=== PATIENT | male | born 1960 | race Caucasian/White ===

== ENCOUNTER 2017-07-27 12:22 | Observation (INO) | payer SELFPAY ==
[2017-07-27] VITALS (7 sets, daily range): BP systolic 100–142; BP diastolic 70–87; PULSE 59–92; RESP 16–20; TEMP 97–97.9; O2SAT 97–100
[~2017-07-27] VITALS: Ht 177.8 cm; Wt 59.0 kg
[2017-07-27] MEDS ORDERED: SODIUM CHLORIDE 0.9% FLUSH 10 ML FLUSH IVF PRN (13:00)
[2017-07-27] MEDS ORDERED: ASPIRIN 81 MG CHEW TAB PO ONE (13:00)
--- NOTE | 2017-07-27 13:04 | PD ---
HPI Chief Complaint: Respiratory Symptoms Time Seen by Provider: 12:43 Travel History International Travel<30 days: No Contact w/Intl Traveler<30days: No Traveled to known affect area: No History of Present Illness HPI patient's 57-year-old male presents emergency department for 2 day history of tightness in the center of his chest with occasional radiation to his right arm , it was some dizziness and some shortness of breath. Patient states he has a history of a heart attack in the distant past, strong family history of heart disease in knees and heavy smoker. No history of high blood pressure high cholesterol but he has not had a checkup in some years. No fevers no cough no congestion. He states his symptoms are moderate, exacerbated with exercise, associated signs symptoms as above, context as above. PFSH Past Medical History Medical History: Denies Significant Hx Diminished Hearing: No Tetanus Vaccination: Unknown Influenza Vaccination: No ?: Not Past Surgical History Other Surgery: Yes (rib removed) Social History Alcohol Use: Yes (few beers) Tobacco Use: Yes (1 ppd) Substance Use: No Allergies-Medications (Allergen,Severity, Reaction): Coded Allergies: erythromycin base (Verified Allergy, Intermediate, UNKNOWN, 07/27/17) Reported Meds & Prescriptions Reported Meds & Active Scripts Active No Active Prescriptions or Reported Medications Review of Systems Except as stated in HPI: all other systems reviewed are Neg Physical Exam Narrative GENERAL: Well-developed well-nourished in no obvious distress, thin build, smells of cigarette smoke SKIN: Focused skin assessment warm/dry. HEAD: Atraumatic. Normocephalic. EYES: Pupils equal and round. No scleral icterus. No injection or drainage. ENT: No nasal bleeding or discharge. Mucous membranes pink and moist. NECK: Trachea midline. No JVD. CARDIOVASCULAR: Regular rate and rhythm. No murmur appreciated. 2+ but equal pulses in all 4 extremities. No Reproducible chest pain RESPIRATORY: No accessory muscle use. Clear to auscultation. Breath sounds equal bilaterally. GASTROINTESTINAL: Abdomen soft, non-tender, nondistended. Hepatic and splenic margins not palpable. MUSCULOSKELETAL: No obvious deformities. No clubbing. No cyanosis. No edema. NEUROLOGICAL: Awake and alert. No obvious cranial nerve deficits. Motor grossly within normal limits. Normal speech. PSYCHIATRIC: Appropriate mood and affect; insight and judgment normal. Data Data Last Documented VS Vital Signs Date Time Temp Pulse Resp B/P (MAP) Pulse Ox O2 Delivery O2 Flow Rate FiO2 07/27/17 13:21 103/79 (87) 07/27/17 13:17 92 16 98 Room Air 07/27/17 12:24 97.9 Orders Orders Electrocardiogram (07/27/17 12:53) Complete Blood Count With Diff (07/27/17 12:53) Comprehensive Metabolic Panel (07/27/17 12:53) D-Dimer (07/27/17 12:53) Magnesium (Mg) (07/27/17 12:53) Prothrombin Time / Inr (Pt) (07/27/17 12:53) Act Partial Throm Time (Ptt) (07/27/17 12:53) Troponin I (07/27/17 12:53) Chest, Single Ap (07/27/17 12:53) Ecg Monitoring (07/27/17 12:53) Iv Access Insert/Monitor (07/27/17 12:53) Oximetry (07/27/17 12:53) Oxygen Administration (07/27/17 12:53) Aspirin Chew (Aspirin Chew) (07/27/17 13:00) Sodium Chloride 0.9% Flush (Ns Flush) (07/27/17 13:00) Nitroglycerin Sl (Nitrostat Sl) (07/27/17 13:00) Admit Order (Ed Use Only) (07/27/17 ) Labs Laboratory Tests Test 07/27/17 13:00 White Blood Count 5.9 TH/MM3 Red Blood Count 5.19 MIL/MM3 Hemoglobin 15.4 GM/DL Hematocrit 47.4 % Mean Corpuscular Volume 91.3 FL Mean Corpuscular Hemoglobin 29.8 PG Mean Corpuscular Hemoglobin Concent 32.6 % Red Cell Distribution Width 12.7 % Platelet Count 224 TH/MM3 Mean Platelet Volume 7.8 FL Neutrophils (%) (Auto) 56.9 % Lymphocytes (%) (Auto) 24.5 % Monocytes (%) (Auto) 9.7 % Eosinophils (%) (Auto) 4.5 % Basophils (%) (Auto) 4.4 % Neutrophils # (Auto) 3.3 TH/MM3 Lymphocytes # (Auto) 1.4 TH/MM3 Monocytes # (Auto) 0.6 TH/MM3 Eosinophils # (Auto) 0.3 TH/MM3 Basophils # (Auto) 0.3 TH/MM3 CBC Comment DIFF FINAL Differential Comment Prothrombin Time 9.5 SEC Prothromb Time International Ratio 0.9 RATIO Activated Partial Thromboplast Time 25.0 SEC D-Dimer Quantitative (PE/DVT) 0.42 MG/L FEU Blood Urea Nitrogen 11 MG/DL Creatinine 0.92 MG/DL Random Glucose 89 MG/DL Total Protein 7.7 GM/DL Albumin 3.7 GM/DL Calcium Level 8.9 MG/DL Magnesium Level 2.2 MG/DL Alkaline Phosphatase 77 U/L Aspartate Amino Transf (AST/SGOT) 19 U/L Alanine Aminotransferase (ALT/SGPT) 19 U/L Total Bilirubin 0.5 MG/DL Sodium Level 139 MEQ/L Potassium Level 3.9 MEQ/L Chloride Level 105 MEQ/L Carbon Dioxide Level 26.6 MEQ/L Anion Gap 7 MEQ/L Estimat Glomerular Filtration Rate 85 ML/MIN Troponin I LESS THAN 0.02 NG/ML MDM Medical Decision Making Medical Screen Exam Complete: Yes Emergency Medical Condition: Yes Differential Diagnosis ACS, AMI, pneumonia, PE. Narrative Course Patient roomed emergency department, d-dimer is below the institutional cut off , coupled with a low index of suspicion this makes pulmonary embolism highly unlikely. Troponin negative, EKG negative. Discussed with the patient need for further workup in the future, he has no primary care physician was to follow -up, therefore recommended to the patient admission for observation for troponin trending at a minimum and further workup per chest pain center. Diagnosis Primary Impression: Chest pain Admitting Information Admitting Physician Requests: Observation Scripts No Active Prescriptions or Reported Meds Condition: Stable Nolan Andrade MD Jul 27, 2017 13:04
[2017-07-27] MEDS: NITROGLYCERIN 0.4 MG SL 25 TABS/BTL SL SCH ×2 (13:05→13:09)
[2017-07-27 13:08] LABS: AUTOMATED NEUTROPHIL # 3.3 TH/MM3 (1.8-7.7); BASOPHIL # 0.3 TH/MM3 (0-0.2); BASOPHIL % 4.4 % (0.0-2.0); EOSINOPHIL # 0.3 TH/MM3 (0-0.4); EOSINOPHIL % 4.5 % (0.0-4.0); HEMATOCRIT 47.4 % (39.0-51.0); HEMOGLOBIN 15.4 GM/DL (13.0-17.0); LYMPH % 24.5 % (9.0-44.0); LYMPHOCYTE # 1.4 TH/MM3 (1.0-4.8); MEAN CELL VOLUME 91.3 FL (80.0-100.0); MEAN CORPUSCULAR HEMOGLOBIN 29.8 PG (27.0-34.0); MEAN CORPUSCULAR HGB CONC 32.6 % (32.0-36.0); MEAN PLATELET VOLUME 7.8 FL (7.0-11.0); MONO % 9.7 % (0.0-8.0); MONOCYTE # 0.6 TH/MM3 (0-0.9); NEUT % 56.9 % (16.0-70.0); PLATELET COUNT 224 TH/MM3 (150-450); RED BLOOD COUNT 5.19 MIL/MM3 (4.50-5.90); RED CELL DISTRIBUTION WIDTH 12.7 % (11.6-17.2); WHITE BLOOD COUNT 5.9 TH/MM3 (4.0-11.0)
[2017-07-27 13:19] LABS: CHLORIDE 105 MEQ/L (98-107); SODIUM (NA) 139 MEQ/L (136-145)
--- NOTE | 2017-07-27 13:19 | RADRPT ---
EXAM DATE/TIME: 07/27/2017 13:05 [facility] COMPARISON: No previous studies available for comparison. INDICATIONS : Chest pain, short of breath, cough MEDICAL HISTORY : None. SURGICAL HISTORY : None. ENCOUNTER: Initial ACUITY: 4 - 6 days PAIN SCORE: 5/10 LOCATION: Bilateral chest FINDINGS: A single view of the chest demonstrates the lungs to be symmetrically aerated without evidence of mas s, infiltrate or effusion. The cardiomediastinal contours are unremarkable. Osseous structures are intact. CONCLUSION: No acute disease. There is no evidence of pneumonia. Pilo Barone MD on July 27, 2017 at 13:15 Board Certified Radiologist. This report was verified electronically.
[2017-07-27 13:22] LABS: CALCIUM 8.9 MG/DL (8.5-10.1)
[2017-07-27 13:23] LABS: ALBUMIN 3.7 GM/DL (3.4-5.0); BICARBONATE 26.6 MEQ/L (21.0-32.0); BLOOD UREA NITROGEN 11 MG/DL (7-18); GLUCOSE,RANDOM 89 MG/DL (74-106); MAGNESIUM 2.2 MG/DL (1.5-2.5)
[2017-07-27 13:26] LABS: ALT (GPT) 19 U/L (12-78); AST (GOT) 19 U/L (15-37); CREATININE 0.92 MG/DL (0.60-1.30); GLOMERULAR FILTRATION RATE 85 ML/MIN (>89)
[2017-07-27 13:28] LABS: INTERNATIONAL NORMALIZED RATIO 0.9 RATIO; PROTHROMBIN TIME - PATIENT 9.5 SEC (9.8-11.6); TOTAL BILIRUBIN ADULT 0.5 MG/DL (0.2-1.0); TOTAL PROTEIN 7.7 GM/DL (6.4-8.2)
[2017-07-27 13:29] LABS: ALKALINE PHOSPHATASE 77 U/L (45-117)
[2017-07-27 13:31] LABS: TROPONIN I LESS THAN 0.02 NG/ML (0.02-0.05)
[2017-07-27 13:35] LABS: D-DIMER 0.42 MG/L FEU (0.00-0.50)
[2017-07-27] MEDS ORDERED: ONDANSETRON HCL 4 MG/2 ML VIAL IV PUSH PRN (14:00)
[2017-07-27] MEDS ORDERED: SODIUM CHLORIDE 0.9% FLUSH 10 ML FLUSH IV FLUSH PRN (14:00)
[2017-07-27] MEDS ORDERED: ACETAMINOPHEN 500 MG CPLT PO PRN (14:00)
--- NOTE | 2017-07-27 14:46 | HHI.HP ---
[facility] No Primary Care Physician Admission Diagnosis Chest Pain Diagnoses: (1) Chest pain Chief Complaint: Chest pain Travel History International Travel<30 Days: No Contact w/Intl Traveler <30 Da: No Traveled to Known Affected Are: No History of Present Illness This is a pleasant 57-year-old male patient with no known medical history who came into the ED complaining of chest pain. Patient states that he has been having intermittent chest discomfort for the past two days, Diflucan is midsternal chest, characterized as tight and squeezing, denies any radiation of pain, admits to associated shortness of breath, denies any nausea or vomiting or diaphoresis, rates the pain a nine out of ten at its worst on pain scale. Admits that activity worsens pain. The rest does relieve the pain. Denies ever having this kind of chest pain before although he does state that he underwent a cardiac stress test two years ago in [place] which was reportedly negative. Does not follow with his PCP. Denies any recent illness including fever, chills, shortness of breath, cough, abdominal pain, nausea, vomiting or diarrhea or dysuria. Recent states is a pretty active male, his work is very strenuous, but denies any recent trauma or musculoskeletal complaints Review of Systems Constitutional: DENIES: Fever, Chills Eyes: DENIES: Diplopia Ears, nose, mouth, throat: DENIES: Vertigo Respiratory: DENIES: Cough, Shortness of breath Cardiovascular: COMPLAINS OF: Chest pain Gastrointestinal: DENIES: Abdominal pain, Black stools, Bloody stools, Constipation, Diarrhea, Vomiting Musculoskeletal: DENIES: Joint pain Hematologic/lymphatic: DENIES: Bruising Psychiatric: DENIES: Anxiety Except as stated in HPI: all other systems reviewed are Neg Past Family Social History Past Medical History No known medical problems. Past Surgical History Rib removal. Reported Medications Active No Active Prescriptions or Reported Medications Allergies: Coded Allergies: erythromycin base (Verified Allergy, Intermediate, UNKNOWN, 07/27/17) Active Ordered Medications Current Medications Medications (Trade) Dose Ordered Sig/Edwin Route Start Time Stop Time Status Last Admin (NS Flush) 2 ml UNSCH PRN IV FLUSH 07/27/17 14:00 (NS Flush) 2 ml BID IV FLUSH 07/27/17 21:00 (Tylenol) 500 mg Q4H PRN PO 07/27/17 14:00 (Zofran Inj) 4 mg Q6H PRN IV PUSH 07/27/17 14:00 Family History Father has significant cardiovascular disease with cardiac stents. Maternal medical history significant for stroke. Social History Admits to smoking one pack per day cigarettes since the age of [age]. Does admit to drinking three beers per day. Denies any illicit drug use. Physical Exam Vital Signs Vital Signs Date Time Temp Pulse Resp B/P (MAP) Pulse Ox O2 Delivery O2 Flow Rate FiO2 07/27/17 14:39 63 16 105/80 (88) 97 Room Air 07/27/17 13:21 103/79 (87) 07/27/17 13:17 92 16 102/76 (85) 98 Room Air 07/27/17 13:00 100 Room Air 07/27/17 13:00 100 Room Air 07/27/17 12:38 84 100 Room Air 07/27/17 12:24 97.9 81 18 142/85 (104) 100 Physical Exam GENERAL: This is a well-nourished, well-developed patient, in no apparent distress. SKIN: No rashes, ecchymoses or lesions. Cool and dry. HEAD: Atraumatic. Normocephalic. EYES: Pupils equal round and reactive. Extraocular motions intact. No scleral icterus. No injection or drainage. ENT: Nose without bleeding, purulent drainage or septal hematoma. Throat without erythema, tonsillar hypertrophy or exudate. Uvula midline. Airway patent. NECK: Trachea midline. No JVD or lymphadenopathy. Supple, nontender, no meningeal signs. CARDIOVASCULAR: Regular rate and rhythm without murmurs, gallops, or rubs. Some reproducible chest pain to mid sternal chest to palpation RESPIRATORY: Clear to auscultation. Breath sounds equal bilaterally. No wheezes , rales, or rhonchi. GASTROINTESTINAL: Abdomen soft, non-tender, nondistendedNo guarding. MUSCULOSKELETAL: Extremities without clubbing, cyanosis, or edema. No joint tenderness, effusion, or edema noted. NEUROLOGICAL: Awake and alert. Cranial nerves II through XII intact. Motor and sensory grossly within normal limits. Five out of 5 muscle strength in all muscle groups. Normal speech. Laboratory Laboratory Tests Test 07/27/17 13:00 White Blood Count 5.9 Red Blood Count 5.19 Hemoglobin 15.4 Hematocrit 47.4 Mean Corpuscular Volume 91.3 Mean Corpuscular Hemoglobin 29.8 Mean Corpuscular Hemoglobin Concent 32.6 Red Cell Distribution Width 12.7 Platelet Count 224 Mean Platelet Volume 7.8 Neutrophils (%) (Auto) 56.9 Lymphocytes (%) (Auto) 24.5 Monocytes (%) (Auto) 9.7 Eosinophils (%) (Auto) 4.5 Basophils (%) (Auto) 4.4 Neutrophils # (Auto) 3.3 Lymphocytes # (Auto) 1.4 Monocytes # (Auto) 0.6 Eosinophils # (Auto) 0.3 Basophils # (Auto) 0.3 CBC Comment DIFF FINAL Differential Comment Prothrombin Time 9.5 Prothromb Time International Ratio 0.9 Activated Partial Thromboplast Time 25.0 D-Dimer Quantitative (PE/DVT) 0.42 Blood Urea Nitrogen 11 Creatinine 0.92 Random Glucose 89 Total Protein 7.7 Albumin 3.7 Calcium Level 8.9 Magnesium Level 2.2 Alkaline Phosphatase 77 Aspartate Amino Transf (AST/SGOT) 19 Alanine Aminotransferase (ALT/SGPT) 19 Total Bilirubin 0.5 Sodium Level 139 Potassium Level 3.9 Chloride Level 105 Carbon Dioxide Level 26.6 Anion Gap 7 Estimat Glomerular Filtration Rate 85 Troponin I LESS THAN 0.02 Result Diagram: 07/27/17 1300 07/27/17 1300 Imaging Last Impressions Chest X-Ray 07/27/17 1253 Signed Impressions: Service Date/Time: Thursday, July 27, 2017 13:05 - CONCLUSION: No acute disease. There is no evidence of pneumonia. Pilo Barone MD Septic Shock Reassessment Septic shock perfusion: reassessment completed Caprini VTE Risk Assessment Caprini VTE Risk Assessment: No/Low Risk (score <= 1) Caprini Risk Assessment Model Point Value = 1 Point Value = 2 Point Value = 3 Point Value = 5 Age 41-60 Minor surgery BMI > 25 kg/m2 Swollen legs Varicose veins or History of unexplained or recurrent spontaneous Oral contraceptives or hormone replacement Sepsis (< 1 month) Serious lung disease, including pneumonia (< 1 month) Abnormal pulmonary function Acute myocardial infarction Congestive heart failure (< 1 month) History of inflammatory bowel disease Medical patient at bed rest Age 61-74 Arthroscopic surgery Major open surgery (> 45 min) Laparoscopic surgery (> 45 min) Malignancy Confined to bed (> 72 hours) Immobilizing plaster cast Central venous access Age >= 75 History of VTE Family history of VTE Factor V Leiden Prothrombin [id number] Lupus anticoagulant Anticardiolipin antibodies Elevated serum homocysteine Heparin-induced thrombocytopenia Other congenital or acquired thrombophilia Stroke (< 1 month) Elective arthroplasty Hip, pelvis, or leg fracture Acute spinal cord injury (< 1 month) Prophylaxis Regimen Total Risk Factor Score Risk Level Prophylaxis Regimen 0-1 Low Early ambulation 2 Moderate Order ONE of the following: *Sequential Compression Device (SCD) *Heparin 5000 units SQ BID 3-4 Higher Order ONE of the following medications: *Heparin 5000 units SQ TID *Enoxaparin/Lovenox 40 mg SQ daily (WT < 150 kg, CrCl > 30 mL/min) *Enoxaparin/Lovenox 30 mg SQ daily (WT < 150 kg, CrCl > 10-29 mL/min) *Enoxaparin/Lovenox 30 mg SQ BID (WT < 150 kg, CrCl > 30 mL/min) AND/OR *Sequential Compression Device (SCD) 5 or more Highest Order ONE of the following medications: *Heparin 5000 units SQ TID (Preferred with Epidurals) *Enoxaparin/Lovenox 40 mg SQ daily (WT < 150 kg, CrCl > 30 mL/min) *Enoxaparin/Lovenox 30 mg SQ daily (WT < 150 kg, CrCl > 10-29 mL/min) *Enoxaparin/Lovenox 30 mg SQ BID (WT < 150 kg, CrCl > 30 mL/min) AND *Sequential Compression Device (SCD) Assessment and Plan Assessment and Plan Patient has been admitted to the chest pain center for observation. Denies any previous cardiovascular disease. Serial EKGs and serial troponins have been ordered for ruling out purposes. Initial troponin is negative. Will follow trend. EKG reviewed showing sinus rhythm, controlled heart rate, no ST changes. Nitroglycerin given in ED which improved the pain. Placed on daily aspirin. CBC and BMP reviewed, essentially unremarkable. Chest x-ray reviewed showing no acute cardiopulmonary abnormality. Supplemental O2 as needed. Supportive care. At this time patient states that the pain has improved. Continue cardiac telemetry, monitor for any arrhythmias. Will allow patient to eat tonight, will place on nothing by mouth after midnight for possible stress test in a.m. Paula Finnegan Jul 27, 2017 14:46
[2017-07-27 16:33] LABS: TROPONIN I LESS THAN 0.02 NG/ML (0.02-0.05)
[2017-07-27 19:22] LABS: TROPONIN I LESS THAN 0.02 NG/ML (0.02-0.05)
[2017-07-27] MEDS: SODIUM CHLORIDE 0.9% FLUSH 10 ML FLUSH IV FLUSH SCH (20:13)
[2017-07-28] VITALS: BP 120/68; PULSE 58; RESP 20; TEMP 96.3; O2SAT 99
[2017-07-28 03:11] LABS: AUTOMATED NEUTROPHIL # 5.2 TH/MM3 (1.8-7.7); BASOPHIL % 0.6 % (0.0-2.0); EOSINOPHIL # 0.4 TH/MM3 (0-0.4); EOSINOPHIL % 5.2 % (0.0-4.0); HEMATOCRIT 46.1 % (39.0-51.0); HEMOGLOBIN 15.3 GM/DL (13.0-17.0); LYMPH % 16.9 % (9.0-44.0); LYMPHOCYTE # 1.2 TH/MM3 (1.0-4.8); MEAN CELL VOLUME 92.3 FL (80.0-100.0); MEAN CORPUSCULAR HEMOGLOBIN 30.5 PG (27.0-34.0); MEAN CORPUSCULAR HGB CONC 33.1 % (32.0-36.0); MEAN PLATELET VOLUME 7.5 FL (7.0-11.0); MONO % 5.5 % (0.0-8.0); MONOCYTE # 0.4 TH/MM3 (0-0.9); NEUT % 71.8 % (16.0-70.0); PLATELET COUNT 193 TH/MM3 (150-450); WHITE BLOOD COUNT 7.2 TH/MM3 (4.0-11.0)
[2017-07-28 03:29] LABS: CHLORIDE 106 MEQ/L (98-107); SODIUM (NA) 138 MEQ/L (136-145)
[2017-07-28 03:32] LABS: BICARBONATE 25.6 MEQ/L (21.0-32.0); CALCIUM 8.6 MG/DL (8.5-10.1)
[2017-07-28 03:33] LABS: BLOOD UREA NITROGEN 11 MG/DL (7-18); GLUCOSE,RANDOM 89 MG/DL (74-106); MAGNESIUM 1.9 MG/DL (1.5-2.5)
[2017-07-28 03:36] LABS: CREATININE 0.82 MG/DL (0.60-1.30); GLOMERULAR FILTRATION RATE 97 ML/MIN (>89)
[2017-07-28 03:41] LABS: TROPONIN I LESS THAN 0.02 NG/ML (0.02-0.05)
[2017-07-28 05:01] VITALS: BP 108/64; PULSE 66; RESP 18; TEMP 97.2; O2SAT 96
[2017-07-28 08:00] VITALS: BP 109/70; PULSE 77; RESP 18; TEMP 97.8; O2SAT 98
[2017-07-28] MEDS: SODIUM CHLORIDE 0.9% FLUSH 10 ML FLUSH IV FLUSH SCH (08:23)
[2017-07-28] MEDS ORDERED: ASPIRIN 81 MG CHEW TAB CHEW SCH (09:00)
--- NOTE | 2017-07-28 09:36 | HHI.PR ---
Subjective Remarks Follow-up chest pain. Patient seen and examined, lying in bed comfortably. Denies any further chest pain overnight. States that he slept well. States some anxiety regarding stress test planned for this morning, patient reassured. Afebrile and vital signs stable overnight. Objective Vitals Vital Signs Date Time Temp Pulse Resp B/P (MAP) Pulse Ox O2 Delivery O2 Flow Rate FiO2 07/28/17 05:01 97.2 66 18 108/64 (79) 96 07/28/17 00:00 96.3 58 20 120/68 (85) 99 07/27/17 20:00 97 21 07/27/17 20:00 59 07/27/17 20:00 97.0 59 20 100/70 (80) 97 07/27/17 18:00 97.6 62 18 120/87 (98) 97 07/27/17 15:04 07/27/17 14:39 63 16 105/80 (88) 97 Room Air 07/27/17 13:21 103/79 (87) 07/27/17 13:17 92 16 102/76 (85) 98 Room Air 07/27/17 13:00 100 Room Air 07/27/17 13:00 100 Room Air 07/27/17 12:38 84 100 Room Air 07/27/17 12:24 97.9 81 18 142/85 (104) 100 I/O 07/27/17 07/27/17 07/27/17 07/28/17 07/28/17 07/28/17 07:00 15:00 23:00 07:00 15:00 23:00 Intake Total 240 ml Balance 240 ml Intake Oral 240 ml # Voids 3 # Bowel Movements 0 Result Diagram: 07/28/17 0300 07/28/17 0300 Imaging Last Impressions Chest X-Ray 07/27/17 1253 Signed Impressions: Service Date/Time: Thursday, July 27, 2017 13:05 - CONCLUSION: No acute disease. There is no evidence of pneumonia. Pilo Barone MD Objective Remarks GENERAL: Well-nourished, well-developed patient in NAD. SKIN: Warm and dry. No rash. HEAD: Normocephalic. Atraumatic. EYES: Pupils equal and round. No scleral icterus. No injection or drainage. ENT: No nasal bleeding or discharge. Mucous membranes pink and moist. NECK: Supple. Trachea midline. CARDIOVASCULAR: Regular rate and rhythm. S1, S2 noted. No murmur appreciated. Some reproducible chest pain this morning to palpation midsternal chest. RESPIRATORY: No accessory muscle use. Clear to auscultation. Breath sounds equal bilaterally. GASTROINTESTINAL: Abdomen soft, non-tender, nondistended. Normoactive bowel sounds x4. MUSCULOSKELETAL: No obvious deformities. Extremities without clubbing, cyanosis , or edema. NEUROLOGICAL: Awake and alert. No obvious cranial nerve deficits. Motor grossly within normal limits. 5/5 muscle strength in bilateral upper and lower extremities. Normal speech. PSYCHIATRIC: Appropriate mood and affect; insight and judgment normal. A/P Problem List: (1) Chest pain ICD Code: R07.9 - Chest pain, unspecified Status: Acute Plan: Patient has been admitted to the chest pain center for observation. Denies any previous cardiovascular disease. Serial EKGs and serial troponins have been ordered for ruling out purposes. Serial troponins negative. EKG reviewed showing sinus rhythm, controlled heart rate, no ST changes. Nitroglycerin given in ED which improved the pain. Placed on daily aspirin. CBC and BMP reviewed, essentially unremarkable. Chest x-ray reviewed showing no acute cardiopulmonary abnormality. Supplemental O2 as needed. Supportive care. Comfortable on room air Continue cardiac telemetry, monitor for any arrhythmias. Patient will undergo a cardiac treadmill stress test, further hospitalization will depend on results. Patient is stable at this time and agreeable to the plan. Assessment and Plan Patient underwent cardiac DTT, images sent over to lead esthetician on-call with no ischemia noted. Patient updated about results. Will discharge home today with lesions to follow-up with PCP within a week. Patient is stable at this time and agreeable to the plan. Paula Finnegan Jul 28, 2017 09:36
[2017-07-28] MEDS ORDERED: KETOROLAC TROMETHAMINE 60 MG/2 ML (IM) VIAL IM ONE (09:45)
--- NOTE | 2017-07-28 11:27 | HHI.DCPOC ---
Discharge Care Plan Diagnosis: (1) Chest pain Goals to Promote Your Health * To prevent worsening of your condition and complications * To maintain your health at the optimal level Directions to Meet Your Goals Take your medications as prescribed Follow your dietary instruction Follow activity as directed Keep your appointments as scheduled Take your immunizations and boosters as scheduled If your symptoms worsen call your PCP, if no PCP go to Urgent Care Center or Emergency Room Smoking is Dangerous to Your Health. Avoid second hand smoke Call the 24-hour hour crisis hotline for domestic abuse at Paula Finnegan Jul 28, 2017 11:27
[2017-07-28] MEDS ORDERED: ASPI81 CHEW (11:28)
--- NOTE | 2017-07-28 15:38 | TR ---
Date Performed: 07/28/2017 Time Performed: 10:27:52 DOCTOR: Mohsen Velez DRUG LIST: CLINICAL HISTORY: CHEST PAIN REASON FOR TEST: REASON FOR ENDING: OBSERVATION: CONCLUSION: [place] protocol performed test stopped sec to reaching target heart rate and leg fati roe. Good exercise tolerance. No reproducible chest discomfort. No ST changes noted. Occasional PVCs noted throughout test. Recovery quick and unremarkable.Maximum VK=332 Target HR Plfizjwu=853.0% Maxim um HB=359/78 Total Exercise Time=7:01 COMMENTS:
--- NOTE | 2017-07-28 17:19 | EKG ---
Date Performed: 07/27/2017 Time Performed: 13:01:25 PTAGE: 57 years EKG: Sinus rhythm NORMAL ECG NO PREVIOUS TRACING DOCTOR: Kalin Palmer Interpretating Date/Time 07/28/2017 17:18:21
--- NOTE | 2017-07-28 17:40 | EKG ---
Date Performed: 07/27/2017 Time Performed: 15:54:42 PTAGE: 57 years EKG: SINUS BRADYCARDIA BORDERLINE ECG PREVIOUS TRACING : 07/27/2017 13.01 Since previous tracing, no significant change noted DOCTOR: Kalin Palmer Interpretating Date/Time 07/28/2017 17:39:01
--- NOTE | 2017-07-28 17:41 | EKG ---
Date Performed: 07/27/2017 Time Performed: 18:48:02 PTAGE: 57 years EKG: Sinus rhythm NORMAL ECG PREVIOUS TRACING : 07/27/2017 15.54 Since previous tracing, no significant change noted DOCTOR: Kalin Palmer Interpretating Date/Time 07/28/2017 17:39:29
== END 2017-07-28 12:52 | disposition home or self-care (01) ==
LOC: PHED 12:22 → PHEDA 13:53 → PH3A 15:07
PROVIDERS: ADMIT Hospitalist; ATTEND Hospitalist
DX: R07.89 Other chest pain (principal); F41.9 Anxiety disorder, unspecified; R94.31 Abnormal electrocardiogram [ECG] [EKG]; F17.210 Nicotine dependence, cigarettes, uncomplicated; I25.2 Old myocardial infarction; Z79.82 Long term (current) use of aspirin; Z82.49 Family history of ischemic heart disease and other diseases of the circulatory system
CPT/HCPCS: 71045; 80048; 80053; 82550; 82552; 83735; 83880; 84484; 85025; 85379; 85610; 85730; 93005; 93017; 99285; G0378

== ENCOUNTER 2017-08-23 04:11 | Emergency (ER) | payer SELFPAY ==
[~2017-08-23] VITALS: Ht 172.7 cm; Wt 67.0 kg
[~2017-08-23 04:11] MED LIST: ASPI81 CHEW
[2017-08-23 04:15] VITALS: BP 135/67; PULSE 85; RESP 20; TEMP 97.6; O2SAT 99
--- NOTE | 2017-08-23 05:31 | PD ---
HPI Chief Complaint: Anxiety Time Seen by Provider: 05:25 Travel History International Travel<30 days: No Contact w/Intl Traveler<30days: No Traveled to known affect area: No History of Present Illness HPI The patient is a 57-year-old male who complains of anxiety for 2 weeks. He does not have a primary care physician. He is not suicidal. He smokes one pack a day. PFSH Past Medical History Autoimmune Disease: No Anxiety: Yes Cancer: No Cardiovascular Problems: No Diminished Hearing: No Endocrine: No Gastrointestinal Disorders: No Genitourinary: No Immune Disorder: No Implanted Vascular Access Dvce: No Musculoskeletal: No Neurologic: No Psychiatric: No Reproductive: No Respiratory: No Tetanus Vaccination: Unknown Influenza Vaccination: No Past Surgical History Other Surgery: Yes (rib removed) Social History Alcohol Use: Yes (few beers) Tobacco Use: Yes (1 ppd) Substance Use: No Allergies-Medications (Allergen,Severity, Reaction): Coded Allergies: erythromycin base (Verified Allergy, Intermediate, UNKNOWN, 08/23/17) Reported Meds & Prescriptions Reported Meds & Active Scripts Active Tgt Aspirin (Aspirin) 81 Mg Chw 81 Mg CHEW DAILY 30 Days Review of Systems Except as stated in HPI: all other systems reviewed are Neg Physical Exam Narrative GENERAL: Well-nourished, well-developed patient who appears no cold anxious but hostile. His vital signs are normal. SKIN: Focused skin assessment warm/dry. No needle tracks present. HEAD: Normocephalic. EYES: No scleral icterus. No injection or drainage. NECK: Supple, trachea midline. No JVD or lymphadenopathy. CARDIOVASCULAR: Regular rate and rhythm without murmurs, gallops, or rubs. RESPIRATORY: Breath sounds equal bilaterally. No accessory muscle use. Clear to auscultation. GASTROINTESTINAL: Abdomen soft, non-tender, nondistended. MUSCULOSKELETAL: No cyanosis, or edema. BACK: Nontender without obvious deformity. No CVA tenderness. Data Data Last Documented VS Vital Signs Date Time Temp Pulse Resp B/P (MAP) Pulse Ox O2 Delivery O2 Flow Rate FiO2 08/23/17 04:23 88 20 08/23/17 04:15 97.6 135/67 (89) 99 MDM Medical Decision Making Medical Screen Exam Complete: Yes Emergency Medical Condition: Yes Medical Record Reviewed: Yes Differential Diagnosis Anxiety, drug seeking behavior, depression Narrative Course I was talking about the patient to utilize exercise to help anxiety and to talk to people like his brother or perhaps a supervisor of instruction. As soon as I mentioned a supervisor of instruction he walked out stating that this is your advice to see a supervisor of instruction. The patient was told that we would not write strong, potentially addicting anxiety medicines from the emergency department. The patient walked out. Diagnosis Primary Impression: Anxiety Additional Instructions: Follow-up with a primary care physician or psychiatrist/psychologist. Hopefully can find one in your area of Disposition: 07 AGAINST MEDICAL ADVICE Condition: Stable Shahab Rodrigues MD Aug 23, 2017 05:30
== END 2017-08-23 05:37 | disposition left against medical advice (07) ==
LOC: PHED 04:11
DX: F41.9 Anxiety disorder, unspecified (principal); F17.210 Nicotine dependence, cigarettes, uncomplicated; Z79.82 Long term (current) use of aspirin
CPT/HCPCS: 99281